=== PATIENT | female | born 1990 | race Caucasian/White ===

== ENCOUNTER 2019-12-15 12:54 | Emergency (ER) | payer MEDICAID ==
[~2019-12-15] VITALS: Ht 162.6 cm; Wt 140.0 kg
[~2019-12-15 12:54] MED LIST: ALBU8.5H4 IH; ALPR-624 PO; HYDR12.522 PO
[2019-12-15] MEDS ORDERED: LORazepam 1 MG tablet PO ONE (13:25)
[2019-12-15 14:20] VITALS: BP 157/109
== END 2019-12-15 14:27 | disposition home or self-care (01) ==
LOC: ER 12:55
DX: H53.8 Other visual disturbances (principal); H57.89 Other specified disorders of eye and adnexa; F41.9 Anxiety disorder, unspecified; J45.909 Unspecified asthma, uncomplicated; I10 Essential (primary) hypertension; R51.9 Headache, unspecified; Z98.890 Other specified postprocedural states; Z79.899 Other long term (current) drug therapy
CPT/HCPCS: 99283

== ENCOUNTER 2020-05-11 14:54 | Emergency (ER) | payer MEDICAID | END 2020-05-11 17:19 | disposition left against medical advice (07) | LOC: ER 14:54 | DX: M25.539 Pain in unspecified wrist (principal); Z53.21 Procedure and treatment not carried out due to patient leaving prior to being seen by health care provider ==

== ENCOUNTER 2020-09-11 19:06 | Emergency (ER) | payer MEDICAID ==
[~2020-09-11] VITALS: Ht 162.6 cm; Wt 129.6 kg
[2020-09-11 20:21] VITALS: BP 116/73
--- NOTE | 2020-09-11 20:41 | NUR ---
pt is being evaluated by provider, c/o feeling anxiety, was working in [employer], AC was not working, pt c/o feeling dizzy, lightheaded, skin p/w/d, resp even and unlabored, pt said she has been drinking plenty of water now and would like to go home
== END 2020-09-11 21:19 | disposition home or self-care (01) ==
LOC: ER 19:07
DX: T67.5XXA Heat exhaustion, unspecified, initial encounter (principal); J45.909 Unspecified asthma, uncomplicated; I10 Essential (primary) hypertension; F41.9 Anxiety disorder, unspecified; Z56.0 Unemployment, unspecified; Z79.899 Other long term (current) drug therapy; X58.XXXA Exposure to other specified factors, initial encounter; Y93.89 Activity, other specified; Y92.89 Other specified places as the place of occurrence of the external cause; Y99.8 Other external cause status
CPT/HCPCS: 99281

== ENCOUNTER 2024-02-13 02:27 | Emergency (ER) | payer MEDICAID ==
[~2024-02-13] VITALS: Ht 162.6 cm; Wt 104.5 kg
[2024-02-13 02:30] VITALS: BP 158/105; PULSE 89; RESP 14; TEMP 97.9; O2SAT 98
== END 2024-02-13 03:33 | disposition left against medical advice (07) ==
LOC: ER 02:27
DX: F32.A Depression, unspecified (principal); Z53.21 Procedure and treatment not carried out due to patient leaving prior to being seen by health care provider; Z20.822 Contact with and (suspected) exposure to COVID-19
CPT/HCPCS: 36415; 87811